=== PATIENT | female | born 1980 | race Caucasian/White ===

== ENCOUNTER → 2019-05-30 09:22 | Outpatient (CLI) | payer OTHER, BC, SELFPAY ==
--- NOTE | ~2019-05-30 | XR_ITS ---
XR shoulder RT min 2V DATE: 05/30/2019 09:54 INDICATION: Fall. Right rotator cuff tendinitis. TECHNIQUE: 5 views COMPARISON: None FINDINGS: Normal alignment at the acromioclavicular and glenohumeral joints. No fracture, dislocation , periosteal reaction or bone destruction or abnormal right shoulder soft tissue calcification. IMPRESSION: Negative Reviewed, dictated and finalized at location A. IMPRESSION: Negative
== END ==
PROVIDERS: PCP Emergency Medicine; Visit Provider Chiropractor
DX: M77.8 Other enthesopathies, not elsewhere classified (principal)
CPT/HCPCS: 73030

== ENCOUNTER 2019-07-02 08:55 | Outpatient (CLI) | payer BC, SELFPAY ==
--- NOTE | ~2019-07-02 | MM_ITS ---
EXAMINATION: MM screening [facility] BI w krystyna HISTORY: Screening mammogram TECHNIQUE: Craniocaudal and mediolateral oblique 3-D tomosynthesis images were obtained and synthetic 2-D images were generated. CAD analysis was submitted and interpreted. COMPARISON: 06/25/2018 BREAST PARENCHYMAL COMPOSITION: There are scattered areas of fibroglandular density. FINDINGS: There is no evidence of suspicious mass, calcification, or architectural distortion to sugg est malignancy in either breast. There has been no suspicious interval change. IMPRESSION: 1. No mammographic evidence of malignancy. 2. Recommend routine screening mammography in one year. BI-RADS Category 1: Negative Reviewed, dictated and finalized at location A.
== END 2019-07-02 08:56 | disposition home or self-care (01) ==
PROVIDERS: PCP Emergency Medicine; Visit Provider Emergency Medicine
DX: Z12.31 Encounter for screening mammogram for malignant neoplasm of breast (principal)
CPT/HCPCS: 77063; 77067

== ENCOUNTER 2020-07-06 10:02 | Outpatient (CLI) | payer BC, SELFPAY ==
--- NOTE | ~2020-07-06 | MM_ITS ---
EXAMINATION: MM screening [facility] BI w krystyna HISTORY: Screening mammogram TECHNIQUE: Craniocaudal and mediolateral oblique 3-D tomosynthesis images were obtained and synthetic 2-D images were generated. CAD analysis was submitted and interpreted. COMPARISON: 07/02/2019, 06/25/2018 BREAST PARENCHYMAL COMPOSITION: There are scattered areas of fibroglandular density. FINDINGS: There is no evidence of suspicious mass, calcification, or architectural distortion to sugg est malignancy in either breast. There has been no suspicious interval change. IMPRESSION: 1. No mammographic evidence of malignancy. 2. Recommend routine screening mammography in one year. BI-RADS Category 1: Negative Reviewed, dictated and finalized at location A.
== END 2020-07-06 10:03 | disposition home or self-care (01) ==
LOC: ANHIMG 10:11
PROVIDERS: PCP Emergency Medicine; Visit Provider Emergency Medicine
DX: Z12.31 Encounter for screening mammogram for malignant neoplasm of breast (principal)
CPT/HCPCS: 77063; 77067

== ENCOUNTER 2020-08-11 16:58 | Emergency (ER) | payer BC, SELFPAY ==
--- NOTE | ~2020-08-11 | XR_ITS ---
XR chest 2V DATE: 08/11/2020 17:21 INDICATION: Left posterior chest pain, shortness of breath. Bilateral arm numbness. TECHNIQUE: PA and lateral views COMPARISON: April 08, 2016 two-view chest FINDINGS: Chronic minimal elevation left leaf of the diaphragm. No pulmonary infiltrate or consolidat ion, pleural effusion or pulmonary vascular congestion or pneumothorax. Normal heart size. No hilar or mediastinal enlargement. IMPRESSION: No active cardiac pulmonary disease or significant change since 2016 Reviewed, dictated and finalized at location A. IMPRESSION: No active cardiac pulmonary disease or significant change since 7
[2020-08-11 17:03] VITALS: BP 134/82; PULSE 94; RESP 14; TEMP 36.7; O2SAT 100
--- NOTE | 2020-08-11 17:03 | ECG_ITS ---
Measurements Intervals [place] Rate: 93 P: 46 DC: 142 QRS: 61 QRSD: 86 T: 14 QT: 354 QTc: 442 Interpretive Statements SINUS RHYTHM NONSPECIFIC T-WAVE ABNORMALITY- INFERIOR LEADS BORDERLINE ECG Electronically Signed On 08-12-2020 9:46:26 CDT by Maximo Brody D.O.
[2020-08-11 17:24] VITALS: BP 137/85; PULSE 103; RESP 26; O2SAT 97
[2020-08-11 17:27] VITALS: PULSE 103
[2020-08-11 17:31] VITALS: BP 134/83; PULSE 101; RESP 20; O2SAT 97
[2020-08-11 17:36] LABS: Basophils Absolute Auto 0.1 K/mm3 (0.0-0.1); Eosinophils Absolute Auto 0.3 K/mm3 (0-0.3); Eosinophils Percent Auto 3.6 % (0-4.4); Hemoglobin 13.6 g/dL (12.0-15.0); Immature Granulocyte Absolute 0.02 K/mm3 (0.00-0.031); Immature Granulocyte Percent A 0.3 % (0-0.5); Lymphocytes Absolute Auto 1.41 K/mm3 (0.9-3.2); Lymphocytes Percent Auto 20.6 % (18.3-44.2); Mean Corpuscular HGB Conc 32.4 g/dl (32-36); Mean Corpuscular Hemoglobin 29.6 pg (26-34); Mean Corpuscular Volume 91.3 fl (80-100); Mean Platelet Volume 10.2 fl (7.4-10.4); Monocytes Absolute Auto 0.6 K/mm3 (0.1-0.6); Monocytes Percent Auto 9.3 % (2.6-8.5); Neutrophils Absolute Auto 4.5 K/mm3 (1.3-6.7); Neutrophils Percent Auto 65.2 % (45.5-73.1); Platelet Count Result 277 k/mm3 (150-375); Red Cell Distribution Width 12.9 % (11.5-14.5); White Blood Count 6.9 K/mm3 (4.5-10.0)
[2020-08-11 17:46] VITALS: BP 130/84; PULSE 99; RESP 22; O2SAT 98
[2020-08-11 17:46] LABS: Anion Gap 9 mmol/L (8-16); Blood Urea Nitrogen 9 mg/dL (7-17); Calcium 8.8 mg/dL (8.4-10.2); Carbon Dioxide 26 mmol/L (22-30); Chloride 106 mmol/L (98-107); Estimated CRCL calculation 101 ml/min; Estimated Glomerular Filt Rate > 60; Glucose 87 mg/dL (65-105); Potassium 3.7 mmol/L (3.4-5.0); Sodium 141 mmol/L (137-145)
[2020-08-11] MEDS: ASPIRIN 81 MG CHEWABLE TABLET 324 MG PO (17:47)
[2020-08-11 17:58] LABS: Troponin I < 0.012 ng/mL (0.000-0.034)
[2020-08-11 18:08] LABS: INR 0.9
[2020-08-11 18:46] LABS: D Dimer 0.29 ug/mL (<0.48)
[2020-08-11 19:01] VITALS: BP 120/82; PULSE 93; RESP 20; O2SAT 98
--- NOTE | 2020-08-11 19:06 | ED.CHESTPAIN ---
HPI - Chest Pain General Chief Complaint: Chest Pain Stated Complaint: chest pain Time Seen by Provider: 08/11/20 17:17 Source: patient, family and RN notes reviewed Mode of arrival: ambulatory Limitations: no limitations History of Present Illness HPI narrative: Patient is a 40-year-old female who presents to emergency department for evaluation of tingling in the upper extremities that was bilateral initially followed by left upper extremity discomfort patient notes she had the Pfizer vaccine on Sunday patient notes that she thought she developed some under tongue swelling which resolved then had acute onset of tingling in the left upper extremity and right upper extremity left versus right upper extremity numbness resolved patient notes she felt some left scapular pain patient denies similar occurrence in the past patient on arrival is resting comfortably in the room in no distress and denies any other complaints or concerns and is otherwise resting comfortably in no apparent distress Related Data Home Medications Medication Instructions Recorded Confirmed eativeokcpnm-vlg-vtma-FA-vit K tablet PO 08/11/20 [Adults Multivitamin] Allergies Allergy/AdvReac Type Severity Reaction Status Date / Time amoxicillin Allergy Intermediate Swelling Verified 08/11/20 17:29 clavulanic acid Allergy Intermediate Swelling Verified 08/11/20 17:29 Dust Allergy Unknown Unknown Uncoded 08/11/20 17:29 Molds and Smuts Allergy Unknown Unknown Uncoded 08/11/20 17:29 Review of Systems Review of Systems: All systems reviewed & are unremarkable except as noted in HPI and below PMFSH Past Medical History Medical History Obesity Social History Social History (Updated 08/11/20 @ 19:08 by Lester Allison PA-C) Smoking status: Never smoker Gender identity (if verbalized by the patient): Female Exam Narrative: Exam Narrative: GENERAL: Well-appearing, obese, and in no acute distress. HEAD: Normocephalic, atraumatic. EYES: PERRLA and EOMI. ENT: Nares clear, no rhinorrhea or epistaxis. Mucous membranes moist. CHEST: Clear to auscultation. No respiratory distress. No wheezes rales or rhonchi HEART: Regular rate and rhythm. No murmur heard. Normal peripheral pulses. ABDOMEN: Soft, nontender, nondistended. EXTREMITIES: Normal range of motion. No edema. SKIN: Warm, dry, no rash. NEURO: No focal deficits. Alert and oriented x3. Cranial nerves II through XII grossly intact. Motor and sensory intact and symmetrical in the extremities PSYCH: Normal mood and affect. Course Course Emergency Course: Patient in the room no distress resting comfortably no high risk changes in the evaluation has had continued improvement in her symptoms felt appropriate for outpatient reevaluation by primary care ABCs and vital signs intact and stable could be vaccine related reaction given the constellation of symptoms Vital Signs Vital signs: Vital Signs Temperature 98.0 F 08/11/20 17:03 Pulse Rate 94 08/11/20 17:03 Respiratory Rate 14 08/11/20 17:03 Blood Pressure 134/82 08/11/20 17:03 Pulse Oximetry 100 08/11/20 17:03 Temperature 98.0 F 08/11/20 17:03 Pulse Rate 103 H 08/11/20 17:27 Respiratory Rate 14 08/11/20 17:03 Blood Pressure 134/82 08/11/20 17:03 Pulse Oximetry 100 08/11/20 17:03 MDM - Chest Pain MDM Narrative Medical decision making narrative: Patients EKGs and labs are without significant high risk changes. No focal neurologic deficits. cardiac and stroke risk facotrs were reviewed. Pain was not suddne or maximal in onset without tearing or ripping. quality. No other signs or symptoms to suggest aortic dissection. A low-risk Wells criteria is noted. PE is felt to be unlikely. No pneumonia or URI symptoms were seen on evaluation today. Patient is felt to be resonable for continued evaluation as an outpatient. Lab Data Result diagrams: 08/11/20 17:30
== END 2020-08-11 19:21 | disposition home or self-care (01) ==
PROVIDERS: Emergency Medicine Emergency Medical Services; Emergency Provider Family Medicine; PCP Emergency Medicine
DX: R20.2 Paresthesia of skin (principal); E66.9 Obesity, unspecified; Z68.41 Body mass index [BMI] 40.0-44.9, adult
CPT/HCPCS: 36415; 71046; 80048; 84484; 85025; 85380; 85610; 85730; 93005; 99284; A9270

== ENCOUNTER 2021-06-03 11:39 | Emergency (ER) | payer BC, SELFPAY ==
--- NOTE | 2021-06-03 11:59 | ED.URI ---
HPI - URI/Sore Throat General Chief Complaint: Upper Respiratory Infection Stated Complaint: SINUS DRAINAGE Time Seen by Provider: 06/03/21 12:00 Source: patient, RN notes reviewed and old records reviewed Mode of arrival: ambulatory Limitations: no limitations History of Present Illness HPI Narrative: 41 year old female who presents to [facility] care with complaints of sinus drainage, sinus pressure and congestion for the past 1 1/2 weeks with drainage yellow and greenish in color. Patient reports that she had temperature of 100F last night with chills and sweats. She states also that she has dry cough with no shortness of breath noted or expectoration of mucous. Patient states some intermittent soreness of throat but currently states no pain to throat. Patient has taken DayQuil, NyQuil Claritin and Robitussin for her symptoms with out resolution. Patient reports that she has had COVID and Flu shot. MD elicited complaint: cough, rhinorrhea, nasal congestion and sinus pain Pertinent past history: pneumonia and other (environmental allergies) Onset (ago): week(s) (02/27) Consistency: constant Description of mucous: yellow Treatments prior to arrival: cold medicine Related Data Home Medications Medication Instructions Recorded Confirmed fkmxoypyqkdt-tbu-wzcn-FA-vit K 1 tablet PO DIRECTED 08/11/20 06/03/21 [Adults Multivitamin] norethindrone acetate 5 mg DIRECTED 06/03/21 06/03/21 Allergies Allergy/AdvReac Type Severity Reaction Status Date / Time amoxicillin Allergy Intermediate Swelling Verified 08/11/20 17:29 clavulanic acid Allergy Intermediate Swelling Verified 08/11/20 17:29 Dust Allergy Unknown Unknown Uncoded 08/11/20 17:29 Molds and Smuts Allergy Unknown Unknown Uncoded 08/11/20 17:29 Review of Systems Review of Systems: CONSTITUTIONAL: Positive for low grade fever, chills, or sweats. EYES: Denies visual changes, redness, or discharge. ENT: Positive for rhinorrhea, congestion, sore throat, or otalgia. CARDIOVASCULAR: Denies chest pain, palpitations, or edema. RESPIRATORY: positive for cough denies dyspnea. GASTROINTESTINAL: Denies abdominal pain, nausea, vomiting, or diarrhea. GENITOURINARY: Denies dysuria or hematuria. SKIN: Denies rash or itching. MUSCULOSKELETAL: Denies back pain, joint pain, or myalgia. NEUROLOGIC: Denies headache, numbness, or weakness. PSYCHIATRIC: Denies anxiety or depression. All systems reviewed & are unremarkable except as noted in HPI and below PMFSH Past Medical History Medical History (Updated 06/03/21 @ 12:16 by Genesis Kohler NP) Environmental allergies Obesity Pneumonia Surgical History Surgical History (Updated 06/03/21 @ 12:23 by Genesis Kohler NP) H/O umbilical hernia repair S/P correction of deviated nasal septum Family History Family History (Updated 06/03/21 @ 12:06 by Genesis Kohler NP) Mother Cardiomyopathy Social History Social History (Updated 06/03/21 @ 12:24 by Genesis Kohler NP) Smoking status: Never smoker Alcohol intake: current Alcohol use details: rare social Substance use: never Living arrangements: with family Gender identity (if verbalized by the patient): Female Comments At time of signature, agree with nursing past medical, surgical, social and family history. There is no relevant family history pertinent to the presenting complaint Exam Narrative: GENERAL: Well-appearing, well-nourished, and in no acute distress. HEAD: Normocephalic, atraumatic. EYES: PERRLA and EOMI. ENT: Nares red with yellow tinged rhinorrhea no epistaxis. Mucous membranes moist.TM's normal with dull light reflex, throat mild redness with no lesions or exudates, no tonsil swelling noted. NECK: Supple.no lymphadenopathy CHEST: Clear to auscultation. No respiratory distress.SAO2 100% on room air, cough dry with no dyspnea stated. HEART: Regular rate and rhythm. No murmur heard. Normal peripheral pulses. ABDOMEN: Soft, nontender, no
[2021-06-03 12:16] VITALS: BP 143/77; PULSE 104; RESP 16; TEMP 36.6; O2SAT 100
== END 2021-06-03 12:22 | disposition home or self-care (01) ==
PROVIDERS: Emergency Provider Registered Nurse; PCP Emergency Medicine
DX: J01.40 Acute pansinusitis, unspecified (principal); E66.9 Obesity, unspecified; Z68.41 Body mass index [BMI] 40.0-44.9, adult
CPT/HCPCS: 99213; G0463

== ENCOUNTER 2021-08-05 15:21 | Outpatient (CLI) | payer BC, SELFPAY ==
--- NOTE | ~2021-08-05 | MM_ITS ---
EXAMINATION: MM screening [facility] BI w krystyna HISTORY: Screening mammogram TECHNIQUE: Craniocaudal and mediolateral oblique 3-D tomosynthesis images were obtained and synthetic 2-D images were generated. CAD analysis was submitted and interpreted. COMPARISON: 07/06/2020, 07/02/2019, 06/25/2018 BREAST PARENCHYMAL COMPOSITION: There are scattered areas of fibroglandular density. FINDINGS: There is no suspicious mass, calcification, or architectural distortion to suggest malignan cy in either breast. There has been no suspicious interval change. IMPRESSION: 1. No mammographic evidence of malignancy. 2. Recommend routine screening mammography in one year. BI-RADS Category 1: Negative Reviewed, dictated and finalized at location A.
== END 2021-08-05 15:22 | disposition home or self-care (01) ==
LOC: ANHIMG 15:24
PROVIDERS: PCP Emergency Medicine
DX: Z12.31 Encounter for screening mammogram for malignant neoplasm of breast (principal)
CPT/HCPCS: 77063; 77067

== ENCOUNTER 2021-10-24 14:29 | Emergency (ER) | payer BC, SELFPAY ==
[2021-10-24 14:45] VITALS: BP 131/73; PULSE 94; RESP 18; TEMP 36.3; O2SAT 100
--- NOTE | 2021-10-24 15:07 | ED.URI ---
HPI - URI/Sore Throat General Chief Complaint: Upper Respiratory Infection Stated Complaint: Sore Throat Time Seen by Provider: 10/24/21 15:08 Source: patient, RN notes reviewed and old records reviewed Mode of arrival: ambulatory Limitations: no limitations History of Present Illness HPI Narrative: 41-year-old female presents to the [facility] with complaints of a sore throat today. States that since Sunday she has had laryngitis. Denies any fevers, chest pain, abdominal pain. Denies any upper respiratory issues. Related Data Home Medications Medication Instructions Recorded Confirmed multivit with minerals-iron 18 1 tablet PO DIRECTED 08/11/20 10/24/21 mg-folic ac 400 mcg-vit K 25 mcg tablet (Adults Multivitamin) norethindrone acetate 5 mg tablet 5 mg DIRECTED 06/03/21 10/24/21 Allergies Allergy/AdvReac Type Severity Reaction Status Date / Time amoxicillin Allergy Intermediate Swelling Verified 10/24/21 15:03 clavulanic acid Allergy Intermediate Swelling Verified 10/24/21 15:03 Dust Allergy Unknown Unknown Uncoded 10/24/21 15:03 Molds and Smuts Allergy Unknown Unknown Uncoded 10/24/21 15:03 Review of Systems Review of Systems: All systems reviewed & are unremarkable except as noted in HPI and below Constitutional: Constitutional: Reports no additional constitutional complaints, Denies chills and Denies fever(s) Eyes: Eyes: Reports no additional eye complaints ENT: Reports as per HPI, Denies nasal congestion and Reports sore throat Cardiovascular: Cardiovascular: Reports no additional cardiovascular complaints Respiratory: Respiratory: Reports no additional respiratory complaints Gastrointestinal: Gastrointestinal: Reports no additional gastrointestinal complaints Musculoskeletal: Musculoskeletal: Reports no additional musculoskeletal complaints Integumentary/Breasts: Skin/Breast: Reports system reviewed and no additional complaints, except as docu Neurologic: Reports system reviewed and no additional complaints, except as documented Psychiatric: Psychiatric: Reports no additional psychiatric complaints Allergic/Immunologic: Allergic/Immunologic: Reports no additional allergic/immunologic complaints [facility] Past Medical History Medical History Environmental allergies Obesity Pneumonia Surgical History Surgical History H/O umbilical hernia repair S/P correction of deviated nasal septum Family History Family History Mother Cardiomyopathy Social History Social History Smoking status: Never smoker Alcohol intake: current Alcohol use details: rare social Substance use: never Gender identity (if verbalized by the patient): Female Comments At the time of my signature, I reviewed and agree with the nursing past medical, surgical, social, and family history. There is no relevant family history pertinent to the patient complaint. Exam Const: General: healthy appearing, no acute distress and alert Nutritional Appearance: well nourished Orientation/consciousness: patient oriented x3 Limitations: no limitations HENMT: Head: normal to inspection Ears: external ears normal, TM's normal bilaterally and EAC's normal General nose exam: Normal external nose present and Normal nares present Face and sinus: normal facial exam Mouth: Yes Normal oral and palatal mucosa present, Yes lip normal and Yes moist mucous membranes Throat: posterior oropharynx normal and uvula midline Eyes: General: appearance normal, both eyes and all related structures Pupils: Equal, round and reactive pupils present Neck: Neck: normal visual inspection, no lymphadenopathy and no meningeal signs Chest: Chest palpation & inspection: normal inspection of the chest Resp: Effort & Inspecti
== END 2021-10-24 15:30 | disposition home or self-care (01) ==
PROVIDERS: Emergency Provider Nurse Practitioner; PCP Emergency Medicine
DX: J06.9 Acute upper respiratory infection, unspecified (principal); J02.9 Acute pharyngitis, unspecified; E66.9 Obesity, unspecified; Z68.41 Body mass index [BMI] 40.0-44.9, adult
CPT/HCPCS: 87081; 87880; 99213; G0463

== ENCOUNTER 2022-01-13 14:10 | Emergency (ER) | payer BC, SELFPAY ==
[2022-01-13] VITALS (9 sets, daily range): BP systolic 114–147; BP diastolic 58–87; PULSE 81–100; RESP 13–28; TEMP 36.4; O2SAT 98–100
--- NOTE | ~2022-01-13 | CT_ITS ---
EXAMINATION: CT brain wo con DATE: 01/13/2022 16:23 INDICATION: Paresthesias. Near syncope. TECHNIQUE: Computed tomography (CT) of the head was performed without intravenous contrast. The mA wa s adjusted according to patient size. Iterative reconstruction technique was employed. The dose-lengt h product was 605.33 mGy-cm. COMPARISON: None FINDINGS: There is no intracranial hemorrhage, acute infarction, or abnormal intracranial mass lesion . The ventricles are normal in size. The orbits are normal. The paranasal sinuses are clear. The mast oid air cells are normal. IMPRESSION: 1. Normal brain. Reviewed, dictated and finalized at location A. OR CORPORATE RECRUITER IMPRESSION: 1. Normal brain.
--- NOTE | ~2022-01-13 | XR_ITS ---
EXAMINATION: XR chest 2V DATE: 01/13/2022 15:01 INDICATION: Chest pain. Left arm pain. TECHNIQUE: Frontal and lateral views of the chest were obtained. COMPARISON: Chest 2 views 08/11/2020 FINDINGS: There is chronic mild elevation of left hemidiaphragm. There is no pneumonia, pleural effus ion, or pneumothorax. The heart size is normal. IMPRESSION: 1. No acute cardiopulmonary disease. Reviewed, dictated and finalized at location A. [employer]IZATION MANAGEMENT
--- NOTE | 2022-01-13 14:16 | ECG_ITS ---
Measurements Intervals [place] Rate: 85 P: 42 AR: 146 QRS: 48 QRSD: 87 T: 10 QT: 341 QTc: 408 Interpretive Statements SINUS RHYTHM NONSPECIFIC T-WAVE ABNORMALITY- ANT/INF LEADS BORDERLINE ECG COMPARED TO ECG 08/11/2020 17:09:48 NO SIGNIFICANT CHANGES Electronically Signed On 01-13-2022 14:29:02 [employer] COMPANY DRIVER by Maximo Brody D.O.
[2022-01-13 14:27] LABS: Basophils Absolute Auto 0.1 K/mm3 (0.0-0.1); Eosinophils Absolute Auto 0.3 K/mm3 (0-0.3); Eosinophils Percent Auto 2.8 % (0-4.4); Hematocrit 40.7 % (37.0-47.0); Hemoglobin 13.4 g/dL (12.0-15.0); Immature Granulocyte Absolute 0.03 K/mm3 (0.00-0.031); Immature Granulocyte Percent A 0.3 % (0-0.5); Lymphocytes Absolute Auto 2.22 K/mm3 (0.9-3.2); Lymphocytes Percent Auto 24.7 % (18.3-44.2); Mean Corpuscular HGB Conc 32.9 g/dl (32-36); Mean Corpuscular Hemoglobin 30.2 pg (26-34); Mean Corpuscular Volume 91.9 fl (80-100); Mean Platelet Volume 10.1 fl (7.4-10.4); Monocytes Absolute Auto 0.7 K/mm3 (0.1-0.6); Monocytes Percent Auto 7.8 % (2.6-8.5); Neutrophils Absolute Auto 5.7 K/mm3 (1.3-6.7); Neutrophils Percent Auto 63.4 % (45.5-73.1); Platelet Count Result 317 k/mm3 (150-375); Red Blood Count 4.43 M/mm3 (4.2-5.4); Red Cell Distribution Width 13.9 % (11.5-14.5)
[2022-01-13 14:37] LABS: Glucose Point of Care 106 mg/dl (65-105)
[2022-01-13 14:41] LABS: Prothrombin Time 13.1 Seconds (11.1-14.7)
[2022-01-13 14:43] LABS: Partial Thromboplastin Time 28.8 SECONDS (22.3-36.8)
[2022-01-13 14:56] LABS: Alanine Aminotransferase 28 U/L (6-35); Albumin Level 4.3 g/dL (3.5-5.1); Alkaline Phosphatase 67 U/L (38-126); Anion Gap 12 mmol/L (8-16); Aspartate Amino Transferase 24 U/L (14-36); Bilirubin,Total 0.5 mg/dL (0.2-1.3); Blood Urea Nitrogen 13 mg/dL (7-17); Calcium 8.9 mg/dL (8.4-10.2); Carbon Dioxide 28 mmol/L (22-30); Chloride 101 mmol/L (98-107); Estimated CRCL calculation 87 ml/min; Estimated Glomerular Filt Rate > 60; Glucose 94 mg/dL (65-110); Lipase 139 U/L (23-300); Potassium 3.7 mmol/L (3.4-5.0); Sodium 141 mmol/L (137-145)
[2022-01-13 15:22] LABS: Troponin I 0.015 ng/mL (0.000-0.034)
--- NOTE | 2022-01-13 16:28 | ED.GENADULT ---
HPI - General Adult General Chief complaint: Unspecified Stated complaint: near-syncope, left arm pain Time Seen by Provider: 01/13/22 15:28 Source: patient Mode of arrival: ambulatory Limitations: no limitations History of Present Illness HPI narrative: This is a 41 year old female that presents to the ER for a near syncopal episode today. Reports she was at work. Reports she started to feel lightheaded, nauseated and had pain and tingling in her left arm. She thought maybe her blood sugar was low so she ate a snack. Reports this episode lasted for about 30 minutes. Does report she largely feels better now, but is having some lasting paresthesias in her left arm. Denies fever, chest pain, abdominal pain, or focal numbness or weakness. Related Data Home Medications Medication Instructions Recorded Confirmed multivit with minerals-iron 18 1 tablet PO DIRECTED 08/11/20 10/24/21 mg-folic ac 400 mcg-vit K 25 mcg tablet (Adults Multivitamin) Allergies Allergy/AdvReac Type Severity Reaction Status Date / Time ciprofloxacin Allergy Dizziness Verified 01/13/22 15:22 Dust Allergy Unknown Unknown Uncoded 10/24/21 15:03 Molds and Smuts Allergy Unknown Unknown Uncoded 10/24/21 15:03 Review of Systems Review of Systems: CONSTITUTIONAL: Denies fever CARDIOVASCULAR: Denies chest pain, palpitations, or edema. RESPIRATORY: Reports dyspnea. GASTROINTESTINAL: Denies abdominal pain, vomiting NEUROLOGIC: Denies numbness, or weakness. All systems reviewed & are unremarkable except as noted in HPI and below PMFSH Past Medical History Medical History Environmental allergies Obesity Pneumonia Surgical History Surgical History H/O umbilical hernia repair S/P correction of deviated nasal septum Family History Family History Mother Cardiomyopathy Social History Social History Smoking status: Never smoker Alcohol intake: current Alcohol use details: rare social Substance use: never Gender identity (if verbalized by the patient): Female Exam Narrative: GENERAL: Well-appearing, well-nourished, and in no acute distress. HEAD: Normocephalic, atraumatic. EYES: PERRLA and EOMI. ENT: Nares clear, no rhinorrhea or epistaxis. Mucous membranes moist. Oropharynx without tonsillar hypertrophy exudate or other lesions. Bilateral TMs pearly reyes non-bulging CHEST: Clear to auscultation. No respiratory distress. No wheezes rales or rhonchi HEART: Regular rate and rhythm. No murmur heard. Normal peripheral pulses. ABDOMEN: Soft, nontender, nondistended, normal active bowel sounds. EXTREMITIES: Normal range of motion. No edema. Strength equal in bilateral upper and lower extremities (5/5) SKIN: Warm, dry, no rash. NEURO: No focal deficits. Alert and oriented x3. Cranial nerves II through XII grossly intact PSYCH: Normal mood and affect Course Vital Signs Vital signs: Vital Signs Temperature 97.6 F 01/13/22 14:15 Pulse Rate 100 01/13/22 14:15 Respiratory Rate 16 01/13/22 14:15 Blood Pressure 147/87 H 01/13/22 14:15 Pulse Oximetry 100 01/13/22 14:15 Oxygen Delivery Room Air 01/13/22 14:15 Temperature 97.6 F 01/13/22 14:15 Pulse Rate 100 01/13/22 14:15 Respiratory Rate 16 01/13/22 14:15 Blood Pressure 147/87 H 01/13/22 14:15 Pulse Oximetry 100 01/13/22 14:15 Oxygen Delivery Room Air 01/13/22 14:15 Medical Decision Making MDM Narrative Medical decision making narrative: Patient presents to the emergency department had episode of lightheadedness and nausea earlier today. Also reporting some tingling in her left arm. Patient's vitals are stable. She is neurologically intact. CBC and metabolic panel without concerning findings. EKG without concerning changes
[2022-01-13] MEDS: SODIUM CHLORIDE 0.9% IV 500 ML 999 ML IV CONT (17:00)
[2022-01-13 17:11] LABS: D Dimer 0.38 ug/mL (<0.48)
[2022-01-13 17:34] LABS: Troponin I < 0.012 ng/mL (0.000-0.034)
== END 2022-01-13 18:40 | disposition home or self-care (01) ==
PROVIDERS: Physician Assistant; Emergency Provider Emergency Medicine; PCP Emergency Medicine
DX: R42 Dizziness and giddiness (principal)
CPT/HCPCS: 36415; 70450; 71046; 80053; 82948; 83690; 84484; 85025; 85380; 85610; 85730; 93005; 96360; 99283; J7040

== ENCOUNTER 2022-05-28 11:39 | Emergency (ER) | payer BC, SELFPAY ==
--- NOTE | ~2022-05-28 | XR_ITS ---
EXAMINATION: XR chest 1V portable DATE: 05/28/2022 13:33 INDICATION: Headache. TECHNIQUE: A single frontal view of the chest was obtained. COMPARISON: Chest 2 views 01/13/2022 FINDINGS: The chest demonstrates clear lungs without pneumonia, pleural effusion, or pneumothorax. Th e heart size is normal. IMPRESSION: 1. No acute cardiopulmonary disease. Reviewed, dictated and finalized at location A.
--- NOTE | ~2022-05-28 | CT_ITS ---
EXAMINATION: CT brain wo con DATE: 05/28/2022 14:24 INDICATION: Headache. TECHNIQUE: Computed tomography (CT) of the head was performed without intravenous contrast. The mA wa s adjusted according to patient size. Iterative reconstruction technique was employed. The dose-lengt h product was 605.33 mGy-cm. COMPARISON: Head CT 01/13/2022 FINDINGS: There is no intracranial hemorrhage, acute infarction, or abnormal intracranial mass lesion . The ventricles are normal in size. The paranasal sinuses are clear. The orbits are normal. The mast oid air cells are normal. IMPRESSION: 1. Normal brain. Reviewed, dictated and finalized at location A. IMPRESSION: 1. Normal brain.
[2022-05-28 11:40] VITALS: BP 164/99; PULSE 91; RESP 18; TEMP 36.7; O2SAT 100
--- NOTE | 2022-05-28 13:22 | ED.EYEPROB ---
HPI - Eye Problem General Chief complaint: Eye Problems Stated complaint: right eye issues Time Seen by Provider: 05/28/22 13:21 Source: patient and family Mode of arrival: ambulatory Limitations: no limitations History of Present Illness HPI Narrative: 42 years old white female came to the emergency room because feeling weird around her right eye this morning after she looked at the mirror and noticed that the pupils are not equal and one of them is not reactive to light.. She denies any fever, chills, nausea, vomiting, vision change. 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 Patient reports having regular migraine started 2 days ago, did not get better and ibuprofen, lasted all day then all day yesterday and got better yesterday on Aleve and her headache was 0 out of 10 before going to bed at 8:30 PM last night. Patient migraine headache was at the right side, throbbing, associated with nausea, vomiting, sensitive to light. Currently patient denying any headache. History of hypothyroidism. She does not smoke or drink or uses drugs. Related Data Home Medications Medication Instructions Recorded Confirmed multivit with minerals-iron 18 1 tablet PO DIRECTED 08/11/20 10/24/21 mg-folic ac 400 mcg-vit K 25 mcg tablet (Adults Multivitamin) Allergies Allergy/AdvReac Type Severity Reaction Status Date / Time ciprofloxacin Allergy Dizziness Verified 01/13/22 15:22 Dust Allergy Unknown Unknown Uncoded 10/24/21 15:03 Molds and Smuts Allergy Unknown Unknown Uncoded 10/24/21 15:03 Review of Systems Review of Systems: All systems reviewed & are unremarkable except as noted in HPI and below PMFSH Past Medical History Medical History Environmental allergies Obesity Pneumonia Surgical History Surgical History H/O umbilical hernia repair S/P correction of deviated nasal septum Family History Family History Mother Cardiomyopathy Social History Social History Smoking status: Never smoker Alcohol intake: current Alcohol use details: rare social Substance use: never Living arrangements: with family Gender identity (if verbalized by the patient): Female Exam Narrative: General appearance: Well-developed, well-nourished Skin: Normal color Head: Normocephalic, nontraumatic, pupils are equal, reactive to light, extraocular muscle intact, no rash, no bruises or localized tenderness around the eye. Eyes: Clear conjunctiva ENT: Oropharynx normal, ears normal, nose normal Neck: Supple, nontender Chest and respiratory: Airway patent, no respiratory distress, no accessory muscle use Heart: Regular rate/rhythm Abdomen: Soft, nontender, no organomegaly, quiet bowel sounds Vascular: Normal peripheral pulses, normal capillary refill. Musculoskeletal: Normal range of motion, nontender back Neurologic: Alert and oriented ?3, GAGE DESIGNER is normal as tested, no gross motor deficit Course Reevaluation(s) Reevaluation #1: Currently patient denying any symptoms, feeling okay, denying any headache or eye pain or heaviness after my explanation that her physical exam is within normal limit. Date: 05/28/22 Time: 14:39 Vital Signs Vital signs: Vital Signs Temperature 36.7 C 05/28/22 11:40 Pulse Rate 91 05/28/22 11:40 Respiratory Rate 18 05/28/22 11:40 Blood Pressure 164/99 H 05/28/22 11:40 Pulse Oximetry 100 05/28/22 11:40 Oxygen Delivery Room Air 05/28/22 11:40 Temperature 36.7 C 05/28/22 11:40 Pulse Rate 93 0
[2022-05-28] MEDS: SODIUM CHLORIDE 0.9% IV 1,000 ML 999 ML IV CONT (14:00)
[2022-05-28 14:10] LABS: Basophils Absolute Auto 0.1 K/mm3 (0.0-0.1); Basophils Percent Auto 0.8 % (0.2-1.2); Eosinophils Absolute Auto 0.2 K/mm3 (0-0.3); Eosinophils Percent Auto 2.2 % (0-4.4); Immature Granulocyte Absolute 0.02 K/mm3 (0.00-0.031); Immature Granulocyte Percent A 0.2 % (0-0.5); Lymphocytes Absolute Auto 2.63 K/mm3 (0.9-3.2); Lymphocytes Percent Auto 31.1 % (18.3-44.2); Mean Corpuscular HGB Conc 33.3 g/dl (32-36); Mean Corpuscular Hemoglobin 30.2 pg (26-34); Mean Corpuscular Volume 90.5 fl (80-100); Mean Platelet Volume 10.4 fl (7.4-10.4); Monocytes Absolute Auto 0.5 K/mm3 (0.1-0.6); Neutrophils Percent Auto 59.7 % (45.5-73.1); Platelet Count Result 311 k/mm3 (150-375); Red Blood Count 4.64 M/mm3 (4.2-5.4); Red Cell Distribution Width 14.2 % (11.5-14.5); White Blood Count 8.5 K/mm3 (4.5-10.0)
[2022-05-28 14:25] LABS: Alanine Aminotransferase 29 U/L (6-35); Albumin Level 4.2 g/dL (3.5-5.1); Alkaline Phosphatase 77 U/L (38-126); Anion Gap 4 mmol/L (8-16); Aspartate Amino Transferase 22 U/L (14-36); Bilirubin,Total 0.5 mg/dL (0.2-1.3); Blood Urea Nitrogen 12 mg/dL (7-17); CRP < 0.5 mg/dL (<1.0); Calcium 8.3 mg/dL (8.4-10.2); Carbon Dioxide 28 mmol/L (22-30); Chloride 107 mmol/L (98-107); Estimated CRCL calculation 99 ml/min; Estimated Glomerular Filt Rate > 60; Glucose 88 mg/dL (65-110); Potassium 3.9 mmol/L (3.4-5.0); Sodium 139 mmol/L (137-145)
[2022-05-28 14:27] VITALS: BP 135/86; PULSE 86; RESP 20; O2SAT 99
[2022-05-28 14:42] LABS: Amphetamine Screen Urine Negative (Negative); Barbiturate Screen Urine Negative (Negative); Benzodiazepines Screen Urine Negative (Negative); Cannabinoid Screen Urine Negative (Negative); Cocaine Screen Urine Negative (Negative); Methadone Screen Urine Negative (Negative); Opiate Screen Urine Negative (Negative); Phencyclidine Screen Urine Negative (Negative)
[2022-05-28 14:58] LABS: Erythrocyte Sedimentation Rate 15 mm/hr (0-20)
[2022-05-28 15:01] VITALS: BP 110/64; PULSE 93; RESP 19; O2SAT 100
== END 2022-05-28 15:17 | disposition home or self-care (01) ==
PROVIDERS: Emergency Provider Emergency Medicine; PCP Emergency Medicine
DX: G43.909 Migraine, unspecified, not intractable, without status migrainosus (principal)
CPT/HCPCS: 36415; 70450; 71045; 80053; 80307; 85025; 85652; 86140; 96360; 99284; J7030

== ENCOUNTER 2022-06-08 13:48 | Outpatient (CLI) | payer BC, SELFPAY | END 2022-06-08 13:49 | disposition home or self-care (01) | LOC: ANHSURGERY 13:51 | PROVIDERS: PCP Emergency Medicine; Visit Provider Obstetrics & Gynecology | DX: Z01.812 Encounter for preprocedural laboratory examination (principal); N81.9 Female genital prolapse, unspecified | CPT/HCPCS: 36415; 86850; 86900; 86901 ==

== ENCOUNTER 2022-06-09 00:56 | Day surgery (SDC) | payer BC, SELFPAY ==
[2022-06-02 11:59] VITALS: BMI 40.2
--- NOTE | 2022-06-02 12:04 | PC.NURSE ---
Report to the Outpatient Waiting Room, entrance under the green pavilion located off [facility], at time 9:30 on date 06/09/22. Planned Procedure Time: 11:30. Time changes happen often and if your time is changed the preop area will call you the afternoon before. - You and your visitor will be asked to self-screen and do not enter if you have any COVID symptoms. - A mask is optional within the hospital at this time. Patients may have clear liquids (water, carbonated beverages, clear teas, apple juice) until 3 hours prior to surgery (8:30) with a maximum of 20 ounces. - No food from midnight until time of surgery Take the following medications with a SIP of water the morning of surgery: LEVOTHYROXINE DO NOT STOP ANY OF YOUR OTHER PRESCRIPTION MEDICATIONS PRIOR TO SURGERY EXCEPT THE FOLLOWING Medications to discontinue per physician: VITAMINS Date to take last dose: 06/05/22 Please no make-up, nail ukrainian, hairspray, perfume, deodorant, or body powder the day of surgery. No jewelry (including any body piercings) or valuables the day of surgery, leave them at home. Please take a shower or bath the night before, or the morning of, surgery with an antibacterial soap. Wear comfortable, loose fitting clothing. - Jewelry must be removed prior to entering the operating room. Rings and piercings that are not removed may be cut off. - The hospital will not accept responsibility for valuables. - Please leave all valuables, including medications, at home the day of surgery. If you are going home after surgery, a licensed hole digger truck driver must drive you home. - NO public transportation without another adult if you receive anesthesia. - We recommend that an adult stay with you for 24 hours following discharge. - We also recommend that you do not drive, make important decision, drink alcoholic beverages, or take any drugs that were not prescribed by your health care provider for at least 24 hours after your discharge time. Follow any additional instructions given to you from your surgeon. If you or anyone in your household have experienced Covid symptoms in the past week, please notify your surgeon or the nurse liaison at the phone number below for possible testing. Telephone instructions given to PT Gabby BAUER and asked if any additional questions and then verbalized understanding. Patient advised to call surgeon office or pre surgery nurse liaison [phone] if any additional questions.
--- NOTE | 2022-06-06 13:12 | P.HP_ITS ---
H&P: HPI History of Present Illness Date/Time: 06/06/22 13:12 Chief Complaint: Pelvic pain and uterine prolapse with a regular bleeding and dysmenorrhea Narrative: Is a 42-year-old female admitted for robotic hysterectomy and bilateral salpingectomy secondary to uterine prolapse excessive heavy bleeding. She has pain discomfort and dyspareunia. Risks and benefits of this procedure reviewed including not exclusive of , aspiration, bleeding, transfusion, perforation injury to bowel, bladder, ureters, or other internal organs with need for laparotomy. She received the [employer] handout entitled hysterectomy as well as a D Lian handout. She had all questions answered. She asked to proceed. ON LICENSE OF [facility] Past Medical History Medical History Environmental allergies Obesity Pneumonia Surgical History Surgical History H/O umbilical hernia repair S/P correction of deviated nasal septum Family History Family History Mother Cardiomyopathy Social History Social History Smoking status: Never smoker Alcohol intake: never Alcohol use details: rare social Substance use: never Substance use type: does not use Living arrangements: with family Gender identity (if verbalized by the patient): Female Spiritual care concerns: No Meds Home Medications and Allergies Home Medications Medication Instructions Recorded Confirmed Type multivit with minerals-iron 18 1 tablet PO DIRECTED 08/11/20 06/02/22 History mg-folic ac 400 mcg-vit K 25 mcg tablet (Adults Multivitamin) levothyroxine 25 mcg tablet 25 mcg PO DAILY 06/02/22 06/02/22 History Allergies Allergy/AdvReac Type Severity Reaction Status Date / Time ciprofloxacin Allergy Dizziness Verified 06/02/22 11:58 Dust Allergy Unknown Unknown Uncoded 06/02/22 11:58 Molds and Smuts Allergy Unknown Unknown Uncoded 06/02/22 11:58 Exam Const: General: cooperative, healthy appearing, comfortable and overweight Orientation/consciousness: oriented to person, oriented to place and oriented to time HENMT: Head: normal to inspection Resp: Effort & Inspection: normal respiratory effort Cardio: Rate: regular rate Rhythm: regular rhythm Heart sounds: S1 normal heart sound present and S2 normal heart sound present GI: Inspection: normal to inspection Auscultation: normal bowel sounds : External Female Exam: normal external appearance Speculum Exam - Vagina: normal appearance of the vagina Speculum Exam - Cervix: normal appearance of the cervix (Second-degree prolapse present.) Bimanual exam- vagina & uterus: enlarged Bimanual Exam- Adnexa, other: normal adnexae Assessment and Plan Assessment and plan (1) Pelvic pain: Code(s): R10.2 - Pelvic and perineal pain Status: Acute (2) Uterine prolapse: Code(s): N81.4 - Uterovaginal prolapse, unspecified Status: Acute (3) Excessive vaginal bleeding: Code(s): N93.9 - Abnormal uterine and vaginal bleeding, unspecified Status: Acute Plan Robotic total vaginal hysterectomy and bilateral salpingectomy
--- NOTE | 2022-06-08 10:43 | WPDANESEPPF ---
Anes - Initial Pre Proc Eval Procedure: Operation Date: 06/09/22 11:30 Proposed Procedures p Robotic Assisted Total Vaginal Hysterectomy with Bilateral Salpingectomy - Beni Cooper MD Date/Time: 06/08/22 10:43 Surgeon: Beni Cooper MD Pre Op Diagnosis: Second degree prolapse, Pain, Irrg Bleeding Patient Data Age: 42 Gender: F Height: 1.57 m Weight: 99.8 kg Allergies Allergy/AdvReac Type Severity Reaction Status Date / Time ciprofloxacin Allergy Mild Dizziness Verified 06/09/22 09:26 Dust Allergy Unknown Unknown Uncoded 06/02/22 11:58 Molds and Smuts Allergy Unknown Unknown Uncoded 06/02/22 11:58 Home Medications Medication Instructions Recorded Confirmed Type multivit with minerals-iron 18 1 tablet PO DIRECTED 08/11/20 06/09/22 History mg-folic ac 400 mcg-vit K 25 mcg tablet (Adults Multivitamin) levothyroxine 25 mcg tablet 25 mcg PO DAILY 06/02/22 06/09/22 History hydrocodone 5 mg-acetaminophen 325 1 tablet PO Q4H PRN pain #30 tabs 06/09/22 Rx mg tablet Patient hx anesthesia problems: none Family hx anesthesia problems: none Results Review: All pre-operative results and documents have been reviewed as part of the pre-operative evaluation. [facility] Past Medical History Medical History (Updated 06/08/22 @ 10:43 by Edward Saini DO) Endometriosis Environmental allergies Hypothyroidism Obesity Pneumonia Surgical History Surgical History H/O umbilical hernia repair S/P correction of deviated nasal septum Family History Family History Mother Cardiomyopathy Social History Social History Smoking status: Never smoker Alcohol intake: never Alcohol use details: rare social Substance use: never Substance use type: does not use Living arrangements: with family Gender identity (if verbalized by the patient): Female Spiritual care concerns: No Anes - Eval Final PreProcedure Day of Procedure 06/08/22 10:43 Patient weight: morbidly obese Heart: regular rate and rhythm Lungs: clear to auscultation Airway: Mallampati scale class II Neurological: alert and oriented Last oral intake: >/= 8 hours ASA classification: III Emergent: no Anesthetic plan: proceed Anesthesia type and monitoring: general ETT and standard monitoring Results Review: All pre-operative results and documents have been reviewed as part of the pre-operative evaluation. Informed Consent: The patient's anesthetic plan and its attendant risks and benefits were discussed with the patient/family/POA. Questions were solicited and answers provided to the satisfaction of the patient/family/POA.
[2022-06-09] VITALS (8 sets, daily range): BP systolic 107–125; BP diastolic 56–75; PULSE 71–100; RESP 12–20; TEMP 36.5–36.7; O2SAT 97–100
--- NOTE | 2022-06-09 06:23 | WPDHPUPDATE1 ---
History and Physical Update Update Date/Time: 06/09/22 06:23 History and Physical has been reviewed, including an updated exam of the patient. There are NO changes in the patient's condition. Risks, benefits, and alternatives have been discussed and questions answered. Patient agrees to proceed with procedure.
[2022-06-09] MEDS: ACETAMINOPHEN 500 MG TABLET 1000 MG PO (09:31)
[2022-06-09] MEDS: LACTATED RINGERS 1,000 ML 30 ML IV CONT ×2 (10:05→13:18)
[2022-06-09] MEDS: KETOROLAC 15 MG/ML VIAL (*BKC) IV PUSH (10:07)
[2022-06-09] MEDS: ceFAZolin 2 GM/D5W 50 ML 2 GM/50 ML BAG IVPB (11:45)
--- NOTE | 2022-06-09 13:12 | P.OP_ITS ---
Procedure Note - Detailed Date of Procedure 06/09/22 Pre-op Diagnosis Second degree prolapse, Pain, Irrg Bleeding Post-op Diagnosis Same Procedure Performed Total vaginal hysterectomy bilateral salpingectomy Surgeon Beni Cooper MD Anesthesia General Indications this is a 42-year-old female prolapse uterus pain Findings enlarged uterus. Second-degree prolapse. normal appearingOvaries tubes Description of Procedure the patient was prepped draped in the normal sterile fashion and placed in the dorsal lithotomy position. Excellent endotracheal anesthesia weighted speculum placed in posterior fornix of vagina. Anterior lip of the cervix grasped with a single-tooth tenaculum. The uterus sounded to 10cm. Serial dilatation fragmented dilators performed. This was followed by passage of the 8. STEPHEN and the 3. 0.5 cold cup. Next the 16 Kinyarwanda catheter was placed in the bladder and drained of clear urine. Remainder the instruments removed and changed Supraumbilical incision made in the Veress needle passed in the abdomen. Abdomen filled with CO2 gas [id number]. The 8mm trocar advanced in the abdomen. Downside visualized and no injury seen. Patient placed in Trendelenburg and right left lateral quadrant incisions made. 8mm trocars advanced under direct visualization assuring injury. Right upper quadrant incision made and the 8mm trocar advanced under direct visualization again assuring injury. The robot was docked. Attention was turned to the rehabilitation services counselor. The left round ligament was grasped, burned, cut. Anterior bladder flap was formed by sharply dissecting the peritoneum and reflecting the bladder caudally away from the cervix and uterus to the opposite round ligament. This was then clamped, burned, cut. Next the left fallopian tube was sharply dissected away from the attachment to the ovary. This was left attached at its uterine origin. In like fashion the right fallopian tube was sharply dissected away from right ovary and left attached to the uterine origin. Next the left utero-ovarian ligament was skeletonized clamping burning cutting and bringing this to the level of the previously cut round ligament. In like fashion the utero-ovarian ligament on the right was clamped burned and cut and brought to the level of previously cut ligament conserving the right ovary. The left cardinal and broad ligaments were serially skeletonized clamping burning cutting and bringing this down the lateral edge of the uterus and cervix until the uterine vessels could be seen. These were large and tortuous. These were clamped, burned, cut individually. The opposite side to the right cardinal and broad ligaments were clamped, burned, cut hugging the cervix and uterus until the uterine vessels could be seen on the right. These as well were large and tortuous and individually clamped, burned, cut. At that point blanching of the uterus was noted. A colpotomy incision was made and the cervix and uterus and tubes removed through the vagina. The vagina then closed with continuous running 0V lock from lateral edge to lateral edge and back to the midline. Irrigation undertaken until clear and blood loss estimated at50cc. Allen term was placed over the raw surface area and the robot was undocked. The gas removed from the abdomen. The trocars removed and the incisions closed with 4 Monocryl glue. Instruments removed from the vagina and the patient was awakened. All sponge, needle, instrument counts were correct. There were no immediate complications noted Estimated Blood Loss 50 Drains No Packing No Pathology Yes Complications No immediate complications Condition Stable Disposition PAC
--- NOTE | 2022-06-09 13:43 | SUR.PHASEI ---
1341: Simple mask removed.
--- NOTE | 2022-06-09 14:11 | SUR.PHASEI ---
RN tried to call report and floor RN has to call back soon.
--- NOTE | 2022-06-09 14:24 | PC.NURSE ---
PT arrived on unit via bed accompanied by spouse and family and taken to room 287. PT alert and awake and talkative. PT introductions made and plan of care discussed per post op diesel mechanic helper surgery, pain management, daily care activities. PT and family recipients of such instructions and no barriers to learning identified at this time. PT received such instructions per one to one discussion and demonstrations. PT oriented to room 287 and surrounding area, marker board and call light. PT verbalized understanding of such care.
[2022-06-09] MEDS: DEXTROSE 5%/LACTATED RINGERS 1,000 ML 125 ML IV CONT (14:59)
[2022-06-09] MEDS: KETOROLAC 30 MG/ML VIAL (*BKC) IV PUSH (15:00)
[2022-06-09] MEDS: SIMETHICONE 80 MG TAB.CHEW PO ×3 (15:00→20:58)
[2022-06-09] MEDS: DOCUSATE SODIUM 100 MG CAPSULE PO (16:42)
[2022-06-09] MEDS: HYDROcodone/acetaminophen (*CRX) 5-325 MG TABLET 1 TAB PO ×2 (16:43→20:59)
[2022-06-09] MEDS: IBUPROFEN 600 MG TABLET PO (20:59)
--- NOTE | 2022-06-09 21:56 | PM.DS ---
DS: Admitting Diagnosis Discharge Date 05/10/2022 Admitting Diagnosis pelvic pain/uterine prolapse/enlarged uterus DS: Discharge Diagnosis Discharge Diagnosis (1) Excessive vaginal bleeding: Code(s): N93.9 - Abnormal uterine and vaginal bleeding, unspecified Status: Acute (2) Uterine prolapse: Code(s): N81.4 - Uterovaginal prolapse, unspecified Status: Acute (3) Pelvic pain: Code(s): R10.2 - Pelvic and perineal pain Status: Acute DS: Summary Hospital Course Reason for hospitalization: patient was admitted on 05/09/2022 for robotic total vaginal hysterectomy and bilateral salpingectomy Hospital Course: patient underwent the above-named procedure. Her hospital course unremarkable. She remained afebrile. She was up, voiding without difficulty, eating regular diet, ambulating, general without complaints. Time Spent with Patient Time attestation: Total time spent providing and/or coordinating discharge services: Exam Const: General: cooperative, healthy appearing, comfortable and well groomed Nutritional Appearance: average body habitus Orientation/consciousness: oriented to person, oriented to place and oriented to time HENMT: Head: normal to inspection Resp: Effort & Inspection: normal respiratory effort Cardio: Rate: regular rate Rhythm: regular rhythm Heart sounds: S1 normal heart sound present and S2 normal heart sound present GI: Inspection: normal to inspection and incision ( Wounds clean dry and intact) DS: Data Data Completed and Pending Pending studies at discharge: Pending at discharge 06/09/22 12:43 Surgical [PTH] Routine Discharge Plan Discharge Patient Disposition: Home, Self-Care Stand Alone Forms: General Discharge Instructions Follow-up/Referrals: Beni Schofield MD [Physician] - Discharge Medications: New hydrocodone-acetaminophen 5-325 mg tablet 1 tablet PO Q4H PRN (Reason: pain) Qty: 30 0RF No Action Adults Multivitamin 18 mg iron-400 mcg-25 mcg Tablet 1 tablet PO DIRECTED levothyroxine 25 mcg tablet 25 mcg PO DAILY
[2022-06-10] MEDS: IBUPROFEN 600 MG TABLET PO (03:53)
[2022-06-10] MEDS: HYDROcodone/acetaminophen (*CRX) 5-325 MG TABLET 1 TAB PO ×2 (03:55→08:23)
[2022-06-10 04:00] VITALS: BP 131/66; PULSE 90; RESP 16; TEMP 36.9
[2022-06-10 04:46] LABS: Basophils Absolute Auto 0.1 K/mm3 (0.0-0.1); Basophils Percent Auto 0.4 % (0.2-1.2); Eosinophils Percent Auto 0.1 % (0-4.4); Hematocrit 41.1 % (37.0-47.0); Hemoglobin 13.2 g/dL (12.0-15.0); Immature Granulocyte Absolute 0.09 K/mm3 (0.00-0.031); Immature Granulocyte Percent A 0.5 % (0-0.5); Mean Corpuscular HGB Conc 32.1 g/dl (32-36); Mean Corpuscular Hemoglobin 29.9 pg (26-34); Mean Platelet Volume 10.7 fl (7.4-10.4); Monocytes Absolute Auto 0.9 K/mm3 (0.1-0.6); Monocytes Percent Auto 5.6 % (2.6-8.5); Neutrophils Absolute Auto 13.6 K/mm3 (1.3-6.7); Neutrophils Percent Auto 81.4 % (45.5-73.1); Platelet Count Result 336 k/mm3 (150-375); Red Blood Count 4.42 M/mm3 (4.2-5.4); Red Cell Distribution Width 13.9 % (11.5-14.5); White Blood Count 16.7 K/mm3 (4.5-10.0)
--- NOTE | 2022-06-10 08:06 | PM.GYNPNOP ---
BUSINESS RECORDS MANAGER - A/P Postoperative Procedures: Procedures Operation Date: 06/09/22 11:30 Actual Procedure Side Surgeon p Robotic Assisted Total Vaginal Hysterectomy with Bilateral Salpingectomy Bilateral Beni Cooper MD Postoperative day: 1 Postoperative status: doing well Postoperative plan: routine post-op care, ambulate, advance diet and discharge Time Spent With Patient Time: Total time spent is greater than 50% in coordination of care (as documented) at patient's floor/unit and/or counseling patient: Time with patient: less than 15 minutes BUSINESS RECORDS MANAGER- PN:Subj Post-Op Subjective Date/time seen: 06/10/22 08:06 Subjective: patient has no complaints, patient desires discharge and patient is tolerating oral intake Exam Const: General: cooperative, healthy appearing and comfortable Nutritional Appearance: average body habitus Orientation/consciousness: oriented to person, oriented to place and oriented to time HENMT: Head: normal to inspection Resp: Effort & Inspection: normal respiratory effort Cardio: Rate: regular rate Rhythm: regular rhythm Heart sounds: S1 normal heart sound present and S2 normal heart sound present GI: Inspection: normal to inspection and incision (cdi) BUSINESS RECORDS MANAGER - PN: Obj Data Vital Signs Vital Signs: Vital Signs - 24 hr 06/09/22 09:21 06/09/22 13:18 06/09/22 13:30 Temperature 98.1 F 97.7 F Pulse Rate 85 100 76 Respiratory Rate 20 12 18 Blood Pressure 118/68 125/66 123/71 Pulse Oximetry 100 100 100 Oxygen Delivery Room Air Simple Face Mask Simple Face Mask Oxygen Flow Rate 6 6 06/09/22 13:45 06/09/22 14:00 06/09/22 14:15 Temperature Pulse Rate 76 79 75 Respiratory Rate 18 14 16 Blood Pressure 107/56 L 109/57 L 109/65 Pulse Oximetry 99 97 98 Oxygen Delivery Room Air Room Air Room Air Oxygen Flow Rate 06/09/22 14:30 06/09/22 14:45 06/09/22 19:00 Temperature 97.8 F Pulse Rate 71 71 Respiratory Rate 16 16 Blood Pressure 125/75 Pulse Oximetry 98 98 Oxygen Delivery Room Air Room Air Oxygen Flow Rate 06/10/22 04:00 Temperature 98.4 F Pulse Rate 90 Respiratory Rate 16 Blood Pressure 131/66 Pulse Oximetry Oxygen Delivery Oxygen Flow Rate Intake/Output Intake/Output: Intake & Output 06/07/22 06/08/22 06/09/2206/10/23 23:59 23:59 23:59 23:59 Intake Total 3330 Output Total 1975 Balance 1355 Meds/Results Medications: Active Medications Generic Name Dose Route Start Last Admin Trade Name Freq PRN Reason Stop Dose Admin Hydrocodone Bitart/Acetaminophen 1 tab 06/09/22 14:26 Hydrocodone/Acetaminophen (*Crx) 10-325 Mg Tablet PO Q3H PRN Pain Rated 6 or Greater Hydrocodone Bitart/Acetaminophen 1 tab 06/09/22 14:26 06/10/22 03:55 Hydrocodone/Acetaminophen (*Crx) 5-325 Mg Tablet PO 1 tab Q3H PRN Administration Pain Rated 5 or Less Docusate Sodium 100 mg 06/09/22 17:00 06/09/22 16:42 Docusate Sodium 100 Mg Capsule PO 100 mg BID JOJO Administration Enoxaparin Sodium 40 mg 06/10/22 09:00 Enoxaparin 40 Mg/0.4 Ml Syringe SUB-Q DAILY JOJO Ibuprofen 600 mg 06/09/22 14:26 06/10/22 03:53 Ibuprofen 600 Mg Tablet PO 600 mg Q6H PRN Administration Cramping Simethicone 80 mg 06/09/22 14:26 06/09/22 20:58 Simethicone 80 Mg Tab.Chew PO 80 mg Q2H PRN Administration Gas Labs 06/10/22 04:02 Labs: Laboratory Results - last 24 hr 06/10/22 04:02 WBC 16.7 H RBC 4.42 Hgb 13.2 Hct 41.1 MCV 93.0 MCH 29.9 MCHC 32.1 RDW 13.9 Plt Count 336 MPV 10.7 H Immature Gran % (Auto) 0.5 Neut % (Auto) 81.4 H Lymph % (Auto) 12.0 L Smith % (Auto) 5.6 Eos % (Auto) 0.1 Baso % (Auto) 0.4 Lymph # (Auto) 2.00 Smith # (Auto) 0.9 H Eos # (Auto) 0.0 Baso # (Auto) 0.1 Abs Immat Gran (auto) 0.09 H Absolute Neuts (auto) 13.6 H Absolute Nucleated RBC 0.0 Nucleated RBC % 0.0
[2022-06-10] MEDS: DOCUSATE SODIUM 100 MG CAPSULE PO (08:23)
[2022-06-10] MEDS: ENOXAPARIN 40 MG/0.4 ML SYRINGE SUB-Q (08:23)
[2022-06-10 08:30] VITALS: BP 130/81; PULSE 87; RESP 16; TEMP 36.7; O2SAT 99
== END 2022-06-10 11:25 | disposition home or self-care (01) ==
LOC: ANHSURGERY 09:19 → ANHOB2 14:28
PROVIDERS: PCP Emergency Medicine; Visit Provider Obstetrics & Gynecology
PROC: (CPT 58552; principal; 2022-06-09 11:30)
DX: N81.2 Incomplete uterovaginal prolapse (principal); N93.9 Abnormal uterine and vaginal bleeding, unspecified; R10.2 Pelvic and perineal pain; E03.9 Hypothyroidism, unspecified; E66.01 Morbid (severe) obesity due to excess calories; Z68.41 Body mass index [BMI] 40.0-44.9, adult
CPT/HCPCS: 58552; S2900; 36415; 85025; 86850; 86900; 86901; 88307; 99199; A9270; J0690; J1100; J1650; J1885; J2250; J2405; J2704; J3010; J7030; J7120; J7121

== ENCOUNTER 2022-10-19 13:58 | Outpatient (CLI) | payer BC, SELFPAY ==
--- NOTE | ~2022-10-19 | XR_ITS ---
EXAMINATION: XR lumbar spine 2-3V DATE: 10/19/2022 14:20 INDICATION: Low back pain TECHNIQUE: Anteroposterior and lateral views of the lumbar spine, and cone-down lateral view of the l umbosacral junction were obtained. COMPARISON: None. FINDINGS: Bone alignment is normal. There is no fracture. The vertebral body heights are maintained. There is mild loss of intervertebral disc space height at L5-S1. Small degenerative osteophytes proje ct from the anterior endplates of multiple vertebral bodies. There is moderate facet joint osteoarthr itis at L5-S1. IMPRESSION: 1. Mild lumbar spondylosis without acute findings. Reviewed, dictated and finalized at location A.
--- NOTE | ~2022-10-19 | XR_ITS ---
EXAMINATION: XR sacrum coccyx min 2V INDICATION: Sacrum and coccyx pain TECHNIQUE: Three views of the sacrum and coccyx are obtained. COMPARISON: None available FINDINGS: Bone alignment is normal. No fracture is identified. No abnormal sclerosis or erosion of th e sacroiliac joints is identified. There is mild lower lumbar spondylosis. IMPRESSION: 1. No acute osseous abnormality. Reviewed, dictated and finalized at location A.
== END 2022-10-19 13:59 | disposition home or self-care (01) ==
PROVIDERS: PCP Emergency Medicine; Visit Provider Emergency Medicine
DX: M53.3 Sacrococcygeal disorders, not elsewhere classified (principal); M47.816 Spondylosis without myelopathy or radiculopathy, lumbar region
CPT/HCPCS: 72100; 72220

== ENCOUNTER 2023-01-06 10:16 | Outpatient (CLI) | payer BC, SELFPAY ==
--- NOTE | ~2023-01-06 | MM_ITS ---
EXAMINATION: MM screening michi BI w krystyna HISTORY: Screening mammogram TECHNIQUE: Craniocaudal and mediolateral oblique 3-D tomosynthesis images were obtained and synthetic 2-D images were generated. CAD analysis was submitted and interpreted. COMPARISON: 08/05/2021, 07/06/2020, 07/02/2019 bilateral screening mammogram examinations BREAST PARENCHYMAL COMPOSITION: There are scattered areas of fibroglandular density. FINDINGS: There is no evidence of suspicious mass, calcification, or architectural distortion to sugg est malignancy in either breast. There has been no suspicious interval change. IMPRESSION: 1. No mammographic evidence of malignancy. 2. Recommend routine screening mammography in one year. BI-RADS Category 1: Negative Reviewed, dictated and finalized at location B.
== END 2023-01-06 10:17 | disposition home or self-care (01) ==
PROVIDERS: PCP Emergency Medicine; Visit Provider Emergency Medicine
DX: Z12.31 Encounter for screening mammogram for malignant neoplasm of breast (principal)
CPT/HCPCS: 77063; 77067

== ENCOUNTER 2024-12-19 13:53 | Outpatient (CLI) | payer BC, SELFPAY ==
--- NOTE | ~2024-12-19 | MM_ITS ---
EXAMINATION: MM screening [facility] BI w krystyna HISTORY: Screening TECHNIQUE: Craniocaudal and mediolateral oblique 3-D tomosynthesis images were obtained and synthetic 2-D images were generated. CAD analysis was submitted and interpreted. COMPARISON: Comparison to multiple prior studies sequentially, with oldest reviewed study dated 06/25/2018. BREAST PARENCHYMAL COMPOSITION: Not dense: There are scattered areas of fibroglandular density. FINDINGS: There is no evidence of suspicious mass, calcification, or architectural distortion to suggest malignancy in either breast. There has been no suspicious interval change. IMPRESSION: 1. No mammographic evidence of malignancy. 2. Recommend routine screening mammography in one year. BI-RADS Category 1: Negative Reviewed, dictated and finalized at location O.
--- OUTSIDE RECORDS SUMMARY | 2024-12-19 13:59 | XMS_ITS | Clinical Summary ---
Author Organization [facility] Address [address] [address] Care Team Providers Care Natural Sciences Professor Name Role Phone Maycol Alvarez MD Primary Care Provider [phone] Juan Gracia MD Unavailable [phone] Source Comments [facility],non-owned Affiliates and Associated Physician Practices is amultiple site organization consisting of ambulatory clinics and hospital sitesin [place], [place], [place] and [place]. This disclosure is being madepursuant to the Care Everywhere program and may not contain all information available regarding this patient. Last updated 17.[facility] Allergies Active Allergy Reactions Criticality Noted Date Comments Ciprofloxacin Dizziness 03/24/2022 Medications * Be aware that medications may not be up to date on this document. Alwaysverify current medications with the patient. Upipduow-Zya-La -FA ( VITAMIN WITH IRON) tablet Take 1 (one) tablet by mouth once daily Active Probiotic Product (PROBIOTIC PO) Activ e terconazole (Terazol 7) 0.4 % vaginal cream Insert 1 applicator into the vagina at bedtime 45 g 3 Active Additional Information Patient not taking.Reported on 04/20/2023 multivitamin daily tablet Take 1 (one) tablet by mouth daily with food Active MILK THISTLE PO Take 1 capsule by mouth once daily Active Active Problems Problem Noted Date Diagnosed Date Hyperlipidemia 09/12/2018 Resolved Problems Problem Noted Date Diagnosed Date Resolved Date screening for feta l growth retardation using ultrasonics 12/05/2017 04/14/2022 Overview (11/26/2021): IMO 2021 Update Hypertension affecting pregn esther in third trimester 08/07/2017 04/14/2022 Screening, , for ma lformation by ultrasound 08/07/2017 04/14/2022 with history of pre-term labor 08/02/2017 04/14/2022 Overview (11/22/2017): On Perla, they come to her job weekly First child at 29 weeks, second at 35 weeks AMA (advanced maternal age) multigravida 35+ 8 04/14/2022 Obesity affecting , antepartum 08/02/2017 04/14/2022 History of delivery, currently 04/14/2011 12/15/2015 Immunizations Immunization Administration Dates Next Due INFLUENZA VACCINE, QUADR. (F LUZONE; FLULAVAL; FLUARIX; AFLURIA QUADRIVALENT; 6MO+), 0.5 ML (IIV4) 11/15/2017 TDAP (7yrs+) 11/22/2017,08/31/2011 Family History Medical History Relation Name Comments Emphysema Father Diabetes Maternal Grandfather Heart Disease Maternal Grandmother Diabetes - Type 2 Maternal Uncle CAD (Coronary Artery Disease) Mother Heart Disease Mother cardiomyopathy Heart Disease Paternal Grandmother Relation Name Status Comments Father Maternal Grandfather Maternal Grandmother Maternal Uncle Mother Paternal Grandfather Paternal Grandmother Social History Tobacco Use Types Packs/Day Years Used Date Smoking Tobacco: Never Smokeless Tobacco: Never Tobacco Cessation:Counseling Given: Not Answered Alcohol Use Standard Drinks/Week Comments No 0 (1 standard drink = 0.6 oz pur e alcohol) rarely before PHQ-2 Answer Date Recorded Patient Health Questionnaire-2 Score 0 04/20/2023 Comments No Sex and Gender Information Value Date Recorded Sex Assigned at Not on file Legal Sex Female 10:01 AM RESOURCE PROGRAM TEACHER Gender Identity Not on file Sexual Orientation Not on file Last Filed Vital Signs Vital Sign Reading Time Taken Comments Blood Pressure 122/76 04/22/2024 2:33 PM RESOURCE PROGRAM TEACHER Pulse 108 12/28/2017 9:33 AM CDT Temperature 35.8 C (96.5 F) 04/14/2022 12:49 PM RESOURCE PROGRAM TEACHER Respiratory Rate 18 01/15/2018 9:56 AM RESOURCE PROGRAM TEACHER Oxygen Saturation 100% 01/15/2018 9:56 AM RESOURCE PROGRAM TEACHER Inhaled Oxygen Concentration - - Weight 110.2 kg (243 lb) 04/22/2024 2:33 PM RESOURCE PROGRAM TEACHER Height 157.5 cm (5' 2) 04/22/2024 2:33 PM RESOURCE PROGRAM TEACHER Body Mass Index 44.45 04/22/2024 2:33 PM RESOURCE PROGRAM TEACHER Plan of Treatment Health Maintenance Due Date Last Done Comments COLOGUARD (AGES 45-75) - COLON CA SCREENING 1978 COLON MONITORING 1978 COLONOSCOPY - COLON CA SCREENING 1978 CT COLONOGRAPHY - COLON CA SCREENING 1978 Colorectal Cancer Screening 1978 FIT - COLON CA SCREENING 1978 FLEX SIG - COLON CA SCREENING 1978 LIPID TESTING 1978 HEPATITIS C SCREENING 05/09/1996 HEPATITIS B VACCINE (1 of 3 - 19+ 3-dose series) 1997 MAMMOGRAM 08/06/2023 08/05/2021 DEPRESSION SCREENING 02/27/2024 04/20/2023 SCREENING FOR DIABETES 04/22/2024 01/13/2018, 2017 COVID-19 VACCINE ( - 2024- season) 2024 08/09/2020, 07/19/2020 INFLUENZA VACCINE (#1) 2024 , 11/15/2017, 11/30/2016 PAP with HPV 03/24/2027 03/24/2022, 12/27, 12/15/2015, Additional history exists DTAP/TDAP/TD VACCINES (3 - Td or Tdap) 11/23/2027 11/22/2017, 08/31/2011 ZOSTER VACCINE (1 of 2) 2028 HIV SCREENING Completed 07/12/2017, 02/14/2011 HIB VACCINE Aged Out No longer eligi ble based on patient's age to complete this topic HPV VACCINE Aged Out No longer eligi ble based on patient's age to complete this topic MENINGOCOCCAL (Group B) VACCINE SHARED DECISION-MAKING Aged Out No longer eligible based on patient's age to complete this topic MENINGOCOCCAL GROUPS A/C/Y/W VACCINE Aged Out No longer eligible based on patient's age to complete this topic PNEUMOCOCCAL VACCINE Aged Out No long er eligible based on patient's age to complete this topic Procedures Procedure Name Priority Date/Time Associated Diagnosis Comments PAP IG LB +HPV APTIMA REFLEX 16,18/45 Routine 03/24/2022 11:06 AM RESOURCE PROGRAM TEACHER Well woman exam with routine gynecological exam Screening for human papillomavirus (HPV) MAMMOGRAM 08/05/2021 COMPREHENSIVE METABOLIC PANEL STAT 01/13/2018 10:51 AM RESOURCE PROGRAM TEACHER Hypertension affecting in third trimester HIV-1 HIV-2 ANTIGEN/ANTIBODY W RFLX Routine 07/12/2017 10:51 AM CDT Positive test from Last 3 Months or Most Recently Relevant to Health Maintenance Results * PAP IG LB +HPV APTIMA REFLEX 16,18/45 (03/24/2022 11:06 AM RESOURCE PROGRAM TEACHER) Diagnosis [facility] ACCOUNT BILL Comment: NEGATIVE FOR INTRAEPITHELIAL LESION OR MALIGNANCY. CELLULAR CHANGES ASSOCIATED WITH INFLAMMATION ARE PRESENT. Specimen Adequacy [facility] ACCOUNT BILL Comment: Satisfactory for evaluation. Endocervical and/or squamous metaplastic cells (endocervical component) are present. Clinician Provided ICD10 [facility] ACCOUNT BILL Comment: N81.2 Z01.419 Z11.51 Performed by [facility] ACCOUNT BILL Comment:Lizett grant, Research Associate Policy (ASCP) Comment . [facility] ACCOUNT BILL Note [facility] ACCOUNT BILL Comment: The Pap smear is a screening test designed to aid in the detection of premalignant and malignant conditions of the uterine cervix. It is not a diagnostic procedure and should not be used as the sole means of detecting cervical cancer. Both false-positive and false-negative reports do occur. . IGLBP CPT Code Automation [facility] ACCOUNT BILL Comment: This liquid based ThinPrep(R) pap test was screened with the use of an image guided system. Human papillomavirus Aptima Negative Negative [facility] ACCOUNT BILL Comment: This nucleic acid amplification test detects fourteen high-risk HPV types (16,18,31,33,35,39,45,51,52,56,58,59,66,68) without differentiation. HPV Genotype Reflexed [facility] ACCOUNT BILL Comment:Criteria not met, HP V Genotype not performed. PART OF UTERINE CERVIX / Unknown 03/24/2022 11:06 AM RESOURCE PROGRAM TEACHER 03/24/2022 Narrative [facility] ACCOUNT BILL - 03/29/2022 8:13 AM RESOURCE PROGRAM TEACHER Source.............Cervix;Endocervix No. of containers..01 ThinPrep Vial Resulting Agency Comment Lab Testing performed at: [facility] [address] [place] [id number] [place] Juan Gracia MD LAB - PATHOLOGY/CYTOLOGY OR DERABLES Final Result [facility] ACCOUNT BILL [address] [place] [address] * MAMMOGRAM (08/05/2021) Anatomical Region Laterality Modality Other 08/05/2021 Narrative 08/05/2021 Ordered by an unspecified provider. us Scanned Document SCANNING ONLY Final Result * (ABNORMAL) COMPREHENSIVE METABOLIC PANEL (01/13/2018 10:51 AM RESOURCE PROGRAM TEACHER) Glucose 121(H) 74 - 106 mg/dL 01/13/2018 11:21 AM [facility] Sodium 137 136 - 145 mmol/L 01/13/2018 11:21 AM [facility] Potassium 4.3 3.5 - 5.1 mmol/L 01/13/2018 11:21 AM [facility] Chloride 107 98 - 107 mmol/L 01/13/2018 11:21 AM [facility] CO2 23 22 - 31 mmol/L 01/13/2018 11:21 AM [facility] Calcium 8.9 8.5 - 10.1 mg/dL 01/13/2018 11:21 AM [facility] Anion Gap 7(L) 8 - 16 mmol/L 01/13/2018 11:21 AM [facility] BUN 9 7 - 21 mg/dL 01/13/2018 11:21 AM [facility] Creatinine 0.57 0.50 - 1.30 mg/dL 01/13/2018 11:21 AM RESOURCE PROGRAM TEACHER [facility] Alkaline Phosphatase 107 38 - 126 U/L 01/13/2018 11:21 AM RESOURCE PROGRAM TEACHER [facility] ALT 24 13 - 61 U/L 01/13/2018 11:21 AM RESOURCE PROGRAM TEACHER [facility] AST 9 5 - 40 U/L 01/13/2018 11:21 AM RESOURCE PROGRAM TEACHER [facility] Protein Total 6.8 6.4 - 8.2 gm/dL 01/13/2018 11:21 AM RESOURCE PROGRAM TEACHER [facility] Albumin 2.6(L) 3.4 - 5.0 gm/dL 01/13/2018 11:21 AM RESOURCE PROGRAM TEACHER [facility] Bilirubin Total 0.3 0.2 - 1.0 mg/dL 01/13/2018 11:21 AM RESOURCE PROGRAM TEACHER [facility] eGFR by MDRD >60 >60 mL/min/1.7 3m2 01/13/2018 11:21 AM RESOURCE PROGRAM TEACHER [facility] eGFR by MDRD >60 >60 mL/min/1.7 3m2 01/13/2018 11:21 AM RESOURCE PROGRAM TEACHER [facility] Blood BLOOD SPECIMEN / Unknown Venipuncture / Unknown 01/13/2018 10:51 AM RESOURCE PROGRAM TEACHER 01/13/2018 10:58 AM RESOURCE PROGRAM TEACHER us Angella Watson MD LAB - CHEMISTRY ORDERABLES Final Result [facility] [address] [place] [id number] * HIV-1 HIV-2 ANTIGEN/ANTIBODY W RFLX (07/12/2017 10:51 AM CDT) HIV Screen 4th Generation w Reflex Non Reactive Non Reactive [facility] INSURANCE BILL Blood BLOOD SPECIMEN / Unknown 07/12/2017 10:51 AM CDT 07/12/2017 Narrative Resulting Agency Comment [facility] [place] [address] [phone] [place] Juan Gracia MD LAB - SEROLOGY ORDERABLES F inal Result [facility] INSURANCE BILL [address] [place] [address] from Last 3 Months or Most Recently Relevant to Health Maintenance Insurance [facility] Advance Directives * Full Code (Latest Code Status on File) Date Activated Date Inactivated Comments 01/14/2018 9:27 AM 01/15/2018 12:37 PM * Full Code Date Activated Date Inactivated Comments 01/13/2018 12:29 PM 01/14/2018 9:27 AM * Full Code Date Activated Date Inactivated Comments 01/13/2018 10:22 AM 01/13/2018 12:29 PM * FULL RESUSCITATION Date Activated Date Inactivated Comments 08/30/2011 6:46 AM 08/30/2011 3:28 PM * FULL RESUSCITATION Date Activated Date Inactivated Comments 08/30/2011 3:32 AM 08/30/2011 6:46 AM Care Teams Natural Sciences Professor Relationship Specialty Start Date End Date Maycol Alvarez MD [address] [place] [id number] PCP - General Family Medicine 09/06/17 [place] [id number] [address] Obstetrics and Gynecology 04/22/24
--- OUTSIDE RECORDS SUMMARY | 2024-12-19 13:59 | XMS_ITS | Clinical Summary ---
Author Organization [facility] Care Team Providers Care Director It Name Role Phone Unavailable Primary Care Provider Unavailabl e Social History Tobacco Use Types Packs/Day Years Used Date Smoking Tobacco: Never Assessed Comments Unknown Sex and Gender Information Value Date Recorded Sex Assigned at Not on file Legal Sex Female 8:33 AM CDT Gender Identity Not on file Sexual Orientation Not on file Plan of Treatment Health Maintenance Due Date Last Done Comments Hepatitis C Virus (HCV) Screening 1978 TdaP Immunization 1978 Hepatitis B Immunization (1 of 3 - 19+ 3-dose series) 1997 Pap Smear 05/15/1999 Cervical Cancer Screening (CCS) 2008 HPV/Cotest 2008 Cologuard 05/15/2023 Colonoscopy 05/15/2023 Colorectal Cancer Screening 05/15/2023 Immunochemical Fecal Occult Blood 05/15/2023 Influenza Immunization (#1) 2024 11/0 06/2018, 11/30/2016, 11/20/2012, Additional history exists SARS-COV-2 Immunization ( season) 2024 08/09/2020, 07/19/2020 Respiratory Syncytial Virus (RSV) Immunization (Adult) (1 - 1-dose 75+ series) 2053 Human Papillomavirus (HPV) Immunization Aged Out No longer eligible based on patient's age to complete this topic Meningococcal Immunization (ACWY) Aged Out No longer eligible based on patient's age to complete this topic Pneumococcal Immunization Combined Aged Out No longer eligible based on patient's age to complete this topic Rotavirus Immunization Aged Out No lo nger eligible based on patient's age to complete this topic
--- OUTSIDE RECORDS SUMMARY | 2024-12-19 13:59 | XMS_ITS | Data Portability ---
Author Organization [place] [facility] OFFICE Address [address] [place] [address] Care Team Providers Care Research Anthropologist Name Role Phone CORAZON JUNE Referring Provider [phone] Assessment No assessment recorded. Plan of Treatment Reminders Order Date Submit Date Provider Last Modified By Organization Details Last Modified Time Details Appointments None recorded. Lab None recorded. Referral None recorded. Procedures None recorded. Surgeries None recorded. Imaging electrocar diogram 2018 019 MARY Not available 9 17:27:19 electrocar diogram 2018 019 MARY Not available 9 17:27:09 electrocar diogram 2018 019 cstanfield [email or web address] Not available 9 15:24:53 electrocar diogram 2018 019 nurbanski Not available 9 14:54:37 Medication Orders None recorded. Patient TargetsNo targets recorded. Patient Instructions Encounter Date Encounter Id Patient Instructions Last Modified By Organization Details Last Modified Time 07/25/2018 [id number] When You Want to Lose Weight: Care Instructions [email or web address] Not available 07/25/2018 14:54:37 09/12/2018 [id number] When You Want to Lose Weight: Care Instructions Not available 09/12/2018 15:24:42 high cholesterol : care instructions Not available 09/12/2018 15:24:42 learning about low-fat eating nurbanski Not available 09/12/2018 16:14:52 learning about low-fat eating nurbanski Not available 09/12/2018 16:14:52 Weight loss, pounds Exercise advised Low cholesterol diet advised Low sodium diet advised. Not available 09/12/2018 15:19:16 scribed by jeyson simpson RN; doctor examinied and seen paptinet simutaniously and agreed. Not available 09/12/2018 15:19:41 Reason for Referral None Reported. Results Created Date Observation Date Name Description Value Unit Range Abnormal Flag Note LastModifiedBy Organization Detail LastModifiedTime 07/26/19 19 07/25/2018 elect rocar diogr am Result EKG 9 NSR NSST change s Not Available Martin Elliott MD [address], [place], [address], 07/25/2018 14:13:42 07/26/19 19 07/25/2018 elect skyler reynoldsgr am No observ ation record ed. [email or web address] Martin Elliott MD [address], [place], [address], 07/25/2018 16:54:06 08/20/19 19 08/09/2018 , [facility] ardio gram No observ ation record ed. [facility] [address], [place], [address], 08/20/2018 07:19:49 Result Notes None recorded. Problems Name Problem SNOMED Code Status Onset Date Resolution Date Notes Provider Name and Address Organization Details Recorded Time Cramp in lower limb 852649186 Completed 201809/12/2018 Jeyson jolly [place] - [facility] 9 15:16:02 Diarrhea 69449491 Active 2018 Debby jolly [place] - [facility] 9 14:25:13 Pain in lower limb 66093662 Active 2018 Debby jolly [place] [facility] 9 14:25:24 Family history of Cardiomyopa thy 399435945 Active 2018 Benjamín jolly [place] - [facility] 9 14:53:31 Overweight 420818900 Active 2018 Benjamín jolly [facility] 9 14:53:48 Swelling of bilateral lower limbs 478768644 Active 2018 Jeyson Simpson [facility] 9 15:15:57 Hyperlipide [facility] 13427451 [facility] 15:17[facility] Problem Notes None recorded. Procedures Surgical History Date Name Laterality Status Provider Name and Address Organization Details Recorded Time manipulation of displaced nasal septum completed Debby Eliasr [facility] 07/25/2018 14:27:47 Imaging Results None recorded. Procedure Notes None recorded. Medical Equipment None Reported. Allergies No known drug allergies Medications Name Sig Start Date Stop Date Status Note LastModified by Organization Details LastModified Time ibuprofen 200 mg tablet Take 1 tablet every 6 hours by oral route as needed. active Not Available Not Available No t Available multivitamin 1 Tab qd active Not Available No t Available Not Available Vitals Date Recorded Body weight Heart rate Oxygen saturation Oxygen saturation in Arterial blood by Pulse oximetry Systolic And Diastolic Provider Name and Address Organization Details Last Updated DateTime 9 280888. 43 g 99 /min 99 % 99 % 130/64 mm[Hg] Lennie Edmondson [facility] 9 14:38:42 Date Recorded Body height Body mass index (BMI) Body weight Heart rate Systolic And Diastolic Provider Name and Address Organization Details Last Updated DateTime 09/12/2018 157.48 cm 24.3 kg/m2 32750.79 g 88 /min 115/80 mm[Hg] Jeyson Simpson [facility] 9 15:24:24 Social History Question Answer Notes LastModified by Organizat ion Details LastModified Time Tobacco Smoking Status Never Smoker Not Available [employer] 12/30/2019 03:30:41 What Is Your Level Of Caffeine Consumption? Moderate [id number] Information not available 12/30/2019 How Much Tobacco Do You Chew? None [id number] Information not available 12/30/2019 What Type Of Diet Are You Following? SPECIFIC Weight Loss [id number] Information not available 12/30/2019 Which Illicit Or Recreational Drugs Have You Used? No [id number] Information not available 12/30/2019 Live Alone Or With Others? With Others Information not available 07/25/2018 Marital Status Informatio n not available 07/25/2018 What Was The Date Of Your Most Recent Tobacco Screening? 09/12/2018 [id number] Information not available 12/30/2019 How Many Children Do You Have? 3 [id number] Information not available 12/30/2019 How Much Tobacco Do You Smoke? No [id number] Information not available 12/30/2019 Sex: Unknown Functional Status Question Answer Note LastModified by Organization D etails LastModified Time What is your level of alcohol consumption? None [id number] Information not available 12/30/2019 What is your occupation? None Information not available 07/25/2018 What is your exercise level? None [id number] Information not available 12/30/2019 Mental Status None recorded. Family History Relationship Description Onset Age of this Age Resolved Age Notes LastModified by Organization Details LastModified Time Paternal Uncle Diabetes mellitus [email or web address] Not available 2018 14:26:07 Paternal Uncle Myocardial infarction mloehr Not available 07/25 14:26:15 Paternal Grandfather Diabetes mellitus mloehr Not available 2018 14:26:07 Mother Cardiomyopat hy Strep induce d madhuski Not available 07/25/2018 14:41:36 Medical History No medical history recorded. Gynecological HistoryNo gynecological history recorded. Obstetrics History GPAL:G 0 P 0 0 0 0 Past Encounters Encounter ID Performer Location Encounter Start Date Encounter Closed Date Diagnosis/Indication Diagnosis SNOMED-CT Code Diagnosis ICD10 Code Diagnosis IMO Codes Diagnosis Note [id number] Benjamín Isabel MD [facility] [address] [place] [address] 07/25/2018 14:10:55 07/25/2018 14:55:40 Family history of Cardiomyopathy 178775782 Z82.49 ECHO Overweight 963192950 E66 .3 lipids [id number] Benjamín Isabel MD [facility] [address] [place] [address] 09/12/2018 14:55:12 09/12/2018 16:16:00 Family history of Cardiomyopathy 127309673 Z82.49 08/09/18 ECHO: LV chamber size is normal. There is normal global systolic function and contractil ity. The estimated left ventricle ejection fraction is 55-60%(nor mal). Overweight 994638127 E66 .3 weight loss advised Swelling o f bilateral lower limbs 393262265 M79.89 08/09/18 ECHO: LV chamber size is normal. There is normal global systolic function and contractil ity. The estimated left ventricle ejection fraction is 55-60%(nor mal). Hyperlipidemia 12588775 E78.5 Needs to keep LDL less than 70, and HDL more than 40 LDL 124 08/12/2018 Health Concerns Section Related Observation LastModified by Organization Detai ls LastModified Time None Recorded Concern Status LastModified by Organization Details LastModified Time None Recorded Advance Directives Directive None Recorded Payers Insurance Date Sequence Insurance Name Policy Number Policy Davidson Covered Member ID Davidson Member ID Guarantor Name 09/09/2018 1 NARINDERJEMIMA [id number] Cary Zaidi [id number] Cary Zaidi Notes Date Note Type Note Provider Name and Address Organization Details Recorded Time 9 text/html CC: FHx CMHPI: 38 year-old WF with no significant PMH was referred for initial cardiovascular evaluation. Pt states that her mom had CM induced by Strep infection. she states that does not have any symptoms except of being fat.No cardiac problems , no cardiac evaluation. She just changed her PC and had some labs done. Was told that she does have fatty liver and is undergoing GI evaluation. No known history of coronary artery disease. No history of previous myocardial infarction. No history of heart failure. No known valvular heart disease. No known arrhythmia. Patient reports feeling well overall. Patient is active, but is not exercising regularly. No chest pain. No arm pain. No neck pain. No nausea and vomiting. No diaphoresis. No shortness of breath at rest. No dyspnea on exertion. No fatigue.No orthopnea. No PND. No leg swelling. No palpitation. No dizziness. No syncope . No pre-syncope. No claudication. No major bleeding events. No side effects from medications. Complete ROS negative except as stated in the HPI and ROS. Results from this visit, or from the past:EKG 07/25/18 NSR NSST changes DELFINA [facility] 07/25/2018 14:55:38 9 text/html HyperlipidemiaReported by Patient 09/12/2018 CC: FHx CM HPI: 38 year-old WF with no significant PMH was referred for scheduled fu. SHe was here last 2 months ago. SInce then she had diagnostic testing done and presents today for those results: 08/09/18 ECHO: LV chamber size is normal. There is normal global systolic function and contractility. The estimated left ventricle ejection fraction is 55-60%(normal). Pt states that her mom had CM induced by Strep infection. she states that does not have any symptoms except of being fat. No previous cardiac problems , no cardiac evaluation. Was told that she does have fatty liver and is undergoing GI evaluation. No known history of coronary artery disease. No history of previous myocardial infarction. No history of heart failure. No known valvular heart disease. No known arrhythmia. Patient reports feeling well overall. Patient is active, but is not exercising regularly. No chest pain. No arm pain. No neck pain. No nausea and vomiting. No diaphoresis. No shortness of breath at rest. No dyspnea on exertion. No fatigue.No orthopnea. No PND. No leg swelling. No palpitation. No dizziness. No syncope . No pre-syncope. No claudication. No major bleeding events. No side effects from medications. Complete ROS negative except as stated in the HPI and ROS. Results from this visit, or from the past: lipid 08/13/2018: TR 186, LDL 124, HDL 154, total cholesterol 205 EKG 07/25/18 NSR NSST changes 08/09/18 ECHO: LV chamber size is normal. There is normal global systolic function and contractility. The estimated left ventricle ejection fraction is 55-60%(normal). Benjamín jolly [place] [facility] 09/12/2018 16:15:58 OBGyn Episode No OBEpisode recorded.
--- OUTSIDE RECORDS SUMMARY | 2024-12-19 13:59 | XMS_ITS | Encounter Summary ---
Author Organization [facility] Address [address] [place] [address] Care Team Providers Care Clinical Lab Clerk Name Role Phone Tremayne Braga MD Primary Care Provider Unavail able Vidal Braga MD Primary Care Provider [phone] Tremayne Braga MD Primary Care Provider Unavail able Maycol Alvarez MD Primary Care Provider [phone] Juan Gracia MD Unavailable [phone] Encounter Details Date Type Department Care Team (Late st Contact Info) Description 08/18/2011 [facility] Outpatient Visit EXTERNAL NON-[facility] [place] [id number] [address] Social History Tobacco Use Types Packs/Day Years Used Date Smoking Tobacco: Never Smokeless Tobacco: Never Alcohol Use Standard Drinks/Week Comments No 0 (1 standard drink = 0.6 oz pur e alcohol) rarely before Comments Yes Sex and Gender Information Value Date Recorded Sex Assigned at Not on file 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 Gender Identity Not on file Sexual Orientation Not on file documented as of this encounter Plan of Treatment Not on file documented as of this encounter Visit Diagnoses Not on filedocumented in this encounter Care Teams Clinical Lab Clerk Relationship Specialty Start Date End Date Tremayne Braga MD Retired PCP - General 03/29/11 08/29/11 Vidal Braga MD [address] [facility] [address] [place] [address] PCP - General 08/30/11 11/20/13 Tremayne Braga MD [address] [facility] [address] [place] [address] PCP - General Internal Medicine 11/21/13 09/05/17 Maycol Alvarez MD [address] [facility] [address] [place] [address] PCP - General Family Medicine 09/06/17 [place] [address] [facility] [address] [place] [address] Obstetrics and Gynecology 04/22/24 documented as of this encounter
--- OUTSIDE RECORDS SUMMARY | 2024-12-19 13:59 | XMS_ITS | Encounter Summary ---
Author Organization [facility] Address [address] [place] [address] Care Team Providers Care Irish Moss Operator Name Role Phone Tremayne Braga MD Primary Care Provider Unavail able Vidal Braga MD Primary Care Provider [phone] Tremayne Braga MD Primary Care Provider Unavail able Maycol Alvarez MD Primary Care Provider [phone] Juan Gracia MD Unavailable [phone] Encounter Details Date Type Department Care Team (Late st Contact Info) Description 02/15/2011 [facility] Outpatient Visit EXTERNAL NON-[facility] [place] [id number] [address] Social History Tobacco Use Types Packs/Day Years Used Date Smoking Tobacco: Never Alcohol Use Standard Drinks/Week Comments No 0 (1 standard drink = 0.6 oz pur e alcohol) Comments Yes Sex and Gender Information Value Date Recorded Sex Assigned at Not on file 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 Gender Identity Not on file Sexual Orientation Not on file documented as of this encounter Plan of Treatment Not on file documented as of this encounter Visit Diagnoses Not on filedocumented in this encounter Care Teams Irish Moss Operator Relationship Specialty Start Date End Date Tremayne Braga MD Retired PCP - General 03/29/11 08/29/11 Vidal Braga MD [address] [facility] [address] [place] [address] PCP - General 08/30/11 11/20/13 Tremayne Braga MD [address] [facility] [address] [place] [address] PCP - General Internal Medicine 11/21/13 09/05/17 Maycol Alvarez MD [address] [facility] [address] [place] [address] PCP - General Family Medicine 09/06/17 [place] [address] [facility] [address] [place] [address] Obstetrics and Gynecology 04/22/24 documented as of this encounter
== END 2024-12-19 13:54 | disposition home or self-care (01) ==
LOC: ANHFOHIMG 13:56
PROVIDERS: PCP Emergency Medicine
DX: Z12.31 Encounter for screening mammogram for malignant neoplasm of breast (principal)
CPT/HCPCS: 77063; 77067